=== PATIENT | female | born 1975 | race Caucasian/White ===

== ENCOUNTER 2018-12-19 10:51 | Emergency (ER) | payer OTHER ==
[~2018-12-19] VITALS: Wt 95.6 kg
[~2018-12-19 10:51] MED LIST: AZIT250T PO; BENZ-6 PO; D-ME473S2 PO
[2018-12-19] MEDS ORDERED: ONDANSETRON 4 MG INJ IV STA (12:22)
[2018-12-19] MEDS ORDERED: KETOROLAC 30 MG INJ IV STA (12:22)
[2018-12-19] MEDS ORDERED: HYDR12.58 PO (13:44)
[2018-12-19] MEDS ORDERED: IBUP-1542 PO (14:29)
[2018-12-19 14:32] VITALS: BP 131/89; PULSE 70; RESP 18
--- NOTE | 2018-12-19 18:10 | ERD ---
ER Documentation Chief Complaint Chief Complaint RUQ PAIN SINCE LAST NIGHT HPI Patient is a 43-year-old female with hypertension who presents with abdominal pain. The patient says that she has had right upper quadrant abdominal pain for 1 month. The pain comes and goes. It is worse today. She has no fevers. She has had nausea but no vomiting. She tried ibuprofen. That did seem to help. Her primary doctor is Dr. Lima. Upon review of old medical records this is the patient's third visit to the ER since 2008. ROS All systems reviewed and are negative except as per history of present illness. Medications Home Meds Active Scripts Ibuprofen* (Motrin*) 600 Mg Tab, 600 MG PO Q6H PRN for PAIN AND OR ELEVATED TEMP, #30 TAB Prov:RONNI BECK MD 12/19/18 Reported Medications Hydrochlorothiazide* (Hydrochlorothiazide*) 12.5 Mg Tablet, 12.5 MG PO DAILY, #30 TAB 12/19/18 Discontinued Scripts Dextromethorphan Hb-Promethazine Hcl* (Promethazine DM* Syrup) 473 Ml Syrup, 5 ML PO Q6 PRN for COUGH, #4 OZ Prov:RADHA LUNA PA-C 09/26/17 Benzonatate* (Tessalon Perle*) 100 Mg Capsule, 100 MG PO Q8H PRN for COUGH, #20 CAP Prov:RADHA LUNA PA-C 09/26/17 Azithromycin* (Zithromax*) 250 Mg Tablet, 250 MG PO .ZPACK DIRECTED, #6 TAB TAKE 500 MG (2 TABS) THE FIRST DAY THEN 250 MG (1 TAB) DAYS 2-5 Prov:RADHA LUNA PA-C 09/26/17 Allergies Allergies: Coded Allergies: No Known Drug Allergy (Verified Allergy, Unknown, 12/19/18) PMhx/Soc Medical and Surgical Hx: pt denies Surgical Hx History of Surgery: No Anesthesia Reaction: No Hx Neurological Disorder: No Hx Respiratory Disorders: No Hx Cardiac Disorders: Yes (htn) Hx Psychiatric Problems: No Hx Alcohol Use: No Hx Substance Use: No Hx Tobacco Use: No Smoking Status: Never smoker FmHx Family History: No diabetes Physical Exam Vitals Vital Signs Date Temp Pulse Resp B/P (MAP) Pulse Ox O2 O2 Flow FiO2 Time Delivery Rate 12/19/18 70 18 131/89 100 Room Air 14:32 (103) 12/19/18 97.5 80 18 155/99 98 10:54 (117) Physical Exam Const: No acute distress Head: Atraumatic Eyes: Normal Conjunctiva ENT: Normal External Ears, Nose and Mouth. Neck: Full range of motion. No meningismus. Resp: Clear to auscultation bilaterally Cardio: Regular rate and rhythm, no murmurs Abd: Soft, right upper quadrant tenderness to palpation without rebound or guarding Skin: No petechiae or rashes Back: No midline or flank tenderness Ext: No cyanosis, or edema Neur: Awake and alert Psych: Normal Mood and Affect Result Diagram: 12/19/18 1238 12/19/18 1237 Results 24 hrs Laboratory Tests Test 12/19/18 12:37 12/19/18 12:38 12/19/18 12:47 Sodium Level 142 mmol/L Potassium Level 3.4 mmol/L Chloride Level 104 mmol/L Carbon Dioxide Level 30 mmol/L Anion Gap 8 Blood Urea Nitrogen 10 mg/dl Creatinine 0.55 mg/dl Est Glomerular Filtrat Rate mL/min > 60 mL/min Glucose Level 108 mg/dl Calcium Level 9.2 mg/dl Total Bilirubin 0.5 mg/dl Direct Bilirubin 0.00 mg/dl Indirect Bilirubin 0.5 mg/dl Aspartate Amino Transf (AST/SGOT) 35 IU/L Alanine 56 IU/L Aminotransferase (ALT/SGPT) Alkaline Phosphatase 124 IU/L Total Protein 8.3 g/dl Albumin 4.5 g/dl Globulin 3.80 g/dl Albumin/Globulin Ratio 1.18 Lipase 73 U/L White Blood Count 6.3 10^3/ul Red Blood Count 5.26 10^6/ul Hemoglobin 15.2 g/dl Hematocrit 45.4 % Mean Corpuscular Volume 86.3 fl Mean Corpuscular Hemoglobin 28.9 pg Mean Corpuscular 33.5 g/dl Hemoglobin Concent Red Cell Distribution Width 13.2 % Platelet Count 285 10^3/UL Mean Platelet Volume 10.3 fl Immature Granulocytes % 0.300 % Neutrophils % 49.2 % Lymphocytes % 39.6 % Monocytes % 7.4 % Eosinophils % 2.2 % Basophils % 1.3 % Nucleated Red Blood Cells % 0.0 /100WBC Immature Granulocytes # 0.020 10^3/ul Neutrophils # 3.1 10^3/ul Lymphocytes # 2.5 10^3/ul Monocytes # 0.5 10^3/ul Eosinophils # 0.1 10^3/ul Basophils # 0.1 10^3/ul Nucleated Red Blood Cells # 0.0 10^3/ul Urine Color COLORLESS Urine Clarity CLEAR Urine pH 8.0 Urine Specific [place] 1.010 Urine Ketones NEGATIVE mg/dL Urine Nitrite NEGATIVE mg/dL Urine Bilirubin NEGATIVE mg/dL Urine Urobilinogen NEGATIVE mg/dL Urine Leukocyte Esterase NEGATIVE [place]/ul Urine Microscopic RBC 1 /HPF Urine Microscopic WBC 0 /HPF Urine Bacteria FEW /HPF Urine Hemoglobin 1+ mg/dL Urine Glucose NEGATIVE mg/dL Urine Total Protein NEGATIVE mg/dl POC Beta HCG, Qualitative NEGATIVE Current Medications Medications Dose Sig/Klever Start Time Status Last (Trade) Ordered Route PRN Stop Time Admin Dose Reason Admin Ondansetron 4 mg ONCE STAT 12/19/18 DC 12/19/18 HCl (Zofran IV 12:22 12/19/18 12:51 Inj) 12:23 Ketorolac 30 mg ONCE STAT 12/19/18 DC 12/19/18 Tromethamine IV 12:22 12/19/18 12:52 (Toradol) 12:23 Procedures/MDM Ultrasound of the gallbladder read by radiology. Patient is a 43-year-old female presents with right upper quadrant abdominal pain. Laboratory studies were basically normal. test was negative. Ultrasound shows no signs of cholecystitis. At this point I doubt appendicitis, cholecystitis, pancreatitis, or bowel obstruction. I believe outpatient management is appropriate but the patient will need close follow-up with her primary doctor and with Dr. Berg to talk about elective cholecystectomy. She can return for any worsening symptoms. She was provided with copies of laboratory studies and ultrasound report prior to discharge. Departure Diagnosis: Primary Impression: Abdominal pain Abdominal location: right upper quadrant Qualified Codes: R10.11 - Right upper quadrant pain Condition: Fair Patient Instructions: Abdominal Pain Referrals: HUGH BERG MD, Dr. Additional Instructions: Llame al doctor MAANA y danielle alex MEGHAN PARA DENTRO DE 1-2 ROGERS.Dgale a la secretaria que nosotros le instruimos hacer esta meghan.Avise o llame si tejeda condicin se empeora antes de la meghan. Regresa aqui si peor o no mejor. RONNI BECK MD December 19, 2018 18:10
== END 2018-12-19 14:47 | disposition home or self-care (01) ==
LOC: E/R 10:51
DX: R10.11 Right upper quadrant pain (principal); I10 Essential (primary) hypertension
CPT/HCPCS: 36415; 76705; 80053; 81001; 81025; 83690; 85025; 96374; 96375; J1885; J2405; Z7502